=== PATIENT | male | born 2000 | race African-American/Black ===

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

== ENCOUNTER 2018-08-31 06:24 | Emergency (ER) | payer SELFPAY | END 2018-08-31 06:50 | disposition left against medical advice (07) | LOC: COL.ER 06:24 | DX: Z72.9 Problem related to lifestyle, unspecified (principal) ==

== ENCOUNTER → 2018-08-31 | Emergency (ER) | payer SELFPAY | LOC: COL.ER 04:50 | DX: Z72.9 Problem related to lifestyle, unspecified (principal) ==

== ENCOUNTER 2018-11-09 17:55 | Inpatient (IN) | payer SELFPAY ==
[2018-11-09] VITALS (83 sets, daily range): BP systolic 156; BP diastolic 93; PULSE 68; TEMP 98.1; O2SAT 97–100
[~2018-11-09] VITALS: Ht 167.6 cm; Wt 70.0 kg
[2018-11-09 18:21] LABS: COLLECTION METHOD CATHETER
[2018-11-09 18:25] LABS: BASO % 0.2 % (0.0-2.0); EOS # 0.1 (0.0-0.7); EOS % 1.9 % (0-4.0); GRAN # 3.3 (1.4-6.5); GRAN % 51.2 % (42.2-75.2); HEMATOCRIT 42.2 % (36.0-47.0); HEMOGLOBIN 14.2 g/dl (12.5-16.1); LYMPH # 2.4 (1.2-3.4); LYMPH % 37.3 % (20.0-51.0); MEAN CELL VOLUME 98 fl (80.0-95.0); MEAN CORPUSCULAR HEMOGLOBIN 33 pg (26.0-32.0); MEAN CORPUSCULAR HGB CONC 34 g/dl (33.0-37.0); MEAN PLATELET VOLUME 8.8 fl (7.4-10.4); MONO # 0.6 (0.1-0.6); MONO % 9.1 % (1.7-9.3); PLATELET COUNT 232 K/mm3 (130-400); RED BLOOD COUNT 4.33 M/mm3 (4.20-5.60); REDCELL DISTRIBUTION WIDTH-CV 12.7 % (11.5-14.5)
[2018-11-09 18:33] LABS: MUCOUS Present /lpf; PH 6 (5-8); SQUAMOUS EPITHELIAL 0-2 /hpf; URINE APPEARANCE Hazy; URINE BACTERIA None Seen /hpf; URINE BILIRUBIN Negative (NEGATIVE); URINE BLOOD 1+ (NEGATIVE); URINE COLOR Amber; URINE GLUCOSE Negative (NEGATIVE); URINE KETONE Negative (NEGATIVE); URINE LEUKOCYTE ESTERASE 1+ (NEGATIVE); URINE NITRATE Negative (NEGATIVE); URINE PROTEIN(semi-quant) 1+ (NEGATIVE); URINE UROBILINOGEN >=4.0 mg/dL (NEGATIVE)
[2018-11-09 18:36] LABS: ALANINE AMINOTRANSFERASE 24 U/L (21-72); ALKALINE PHOSPHATASE 74 U/L (50-136); ANION GAP 6 mmol/L (7-16); AST,SGOT 72 U/L (15-37); BILIRUBIN,TOTAL 1.1 mg/dL (0.0-1.0); BLOOD UREA NITROGEN 5 mg/dL (9-20); CALCIUM 9.1 mg/dL (8.4-10.2); CARBON DIOXIDE 24 mmol/L (22-30); CHLORIDE 108 mmol/L (98-107); CREATININE, serum 0.98 (0.66-1.25); GLUCOSE 101 mg/dL (74-106); POTASSIUM 3.9 mmol/L (3.4-5.0); SODIUM 138 mmol/L (137-145); TOTAL PROTEIN 6.9 gm/dL (6.4-8.2)
[2018-11-09 18:41] LABS: ACETAMINOPHEN < 10 ug/mL (10-30); ALCOHOL(ethanol),MEDICAL < 10 mg/dL; SALICYLATE < 1.0 mg/dL
[2018-11-09 18:42] LABS: TRICYCLIC ANTIDEPRESS URINE NEGATIVE
--- NOTE | 2018-11-09 23:54 | NUR ---
ADMISSION DONE WITH VERY LIMITED DATA PT IS UNRESPONSIVE TO QUESTIONS AND ONLY RESPONDS TO PAINFUL STIMULUS. PT'S EYES NOTED TO BE TWITCHING WITH TEARS COMING OUT BUT COULD NOT GET TO OPEN. EYES COMPLETELY SHUT PT IS REFUSING TO OPEN IT UP. LUNGS SOUNDS CLEAR UPON ASSEESSMENT AND SKIN IS INTACT WITH NO ISSUES NOTED. V/S STABLE UPON ARRIVAL TO UNIT. SEIZURE PRECAUTION INITIATED ORDERED. THIS RN TRIED CALLING PT'S MOM ROMELIA LISTED IN PT'S EMERGENCY CONTACT, UNFORTUNATELY UNABLE TO REACH THE NUMBER LISTED WAS NOT WORKING. MEDICATION REC NOT DONE WELL PT DOESN'T HAVE MEDS WITH HIM AND NO FAMILY MEMBER AROUND AT TIME OF ADMISSION.
[2018-11-10] VITALS (825 sets, daily range): BP systolic 118–161; BP diastolic 72–111; PULSE 52–107; TEMP 97.8–99.3; O2SAT 30–100
--- NOTE | 2018-11-10 00:17 | NUR ---
ASSESSMENT IS VERY LIMITED PT DOES NOT ANSWER TO QUESTIONS AND ONLY RESPONDS TO PAINFUL STIMULI. PT WAS AWAKE AT ONE POINT WITH HIS LEFT EYE OPEN AND RIGHT EYES COMPLETELY SHUT. PT RESPONDING TO QUESTIONS WITH ONLY "UHUH." WILL CONTINUE TO MONITOR.
--- NOTE | 2018-11-10 01:18 | NUR ---
2221 - RECEIVED REPORT FROM SHANTEL MAXWELL. 2232 - PT ARRIVED IN UNIT, ONLY RESPONDS TO PAINFUL STIMULI. 2245 - THIS RN TRIED CALLING PT'S EMERGENCY CONTACT WHICH IS [facility] AND LISTED HIS MOM, UNABLE TO REACH NUMBER ON FILE. 2340 - TRIED CALLING ROMELIA AGAIN, UNABLE TO REACH.
--- NOTE | 2018-11-10 04:31 | NUR ---
0400 - PT WAS AWAKE WITH EYES WIDE OPEN THIS NURSE ENTER THE ROOM. THIS RN ASKED PT IF HE'S OKAY AND PT SUDDENLY SCREAMED. PT NOT RESPONDING TO QUESTIONS, AND JUST STARING BLANKLY WITH NO REACTIONS.
--- NOTE | 2018-11-10 05:42 | NUR ---
0524 - PT HAD A SEIZURE LIKE ACTIVITY WITNESSED BY THIS RN AND CHARGE NURSE SHARA LASTING ABOUT A MINUTE. PT DOES NOT RESPOND TO OUR VERBAL COMMANDS AND HAS HIS EYES WIDE OPEN WHILE HAVING THIS SEIZURE-LIKE ACTIVITY. OFFICE SERVICES SPECIALIST TRIED REPOSITIOINING HIS ARMS BUT PT FIGHTING REAL HARD AND SEEMS TO BE DRAWING CIRCLES ON HIS CHEST USING HIS HANDS. LAQUITA FROST NOTIFIED BY SHANTEL OLMEDO. NOW NEW ORDERS GIVEN AT THIS TIME. WILL CONTINUE TO MONITOR.
[2018-11-10 06:39] LABS: BASO % 0.4 % (0.0-2.0); EOS # 0.1 (0.0-0.7); GRAN # 3.3 (1.4-6.5); GRAN % 60.1 % (42.2-75.2); HEMATOCRIT 45.6 % (36.0-47.0); HEMOGLOBIN 15.3 g/dl (12.5-16.1); LYMPH # 1.5 (1.2-3.4); LYMPH % 27.7 % (20.0-51.0); MEAN CELL VOLUME 99 fl (80.0-95.0); MEAN CORPUSCULAR HEMOGLOBIN 33 pg (26.0-32.0); MEAN CORPUSCULAR HGB CONC 34 g/dl (33.0-37.0); MEAN PLATELET VOLUME 8.5 fl (7.4-10.4); MONO # 0.5 (0.1-0.6); MONO % 9.6 % (1.7-9.3); PLATELET COUNT 231 K/mm3 (130-400); RED BLOOD COUNT 4.59 M/mm3 (4.20-5.60)
[2018-11-10 06:46] LABS: CALCIUM 9.1 mg/dL (8.4-10.2); CREATININE, serum 0.95 (0.66-1.25); POTASSIUM 4.3 mmol/L (3.4-5.0)
--- NOTE | 2018-11-10 07:00 | NUR ---
ATTEMPTED TO PERFORM EEG AT THIS TIME PATIENT WOULD NOT ALLOW ME TO MOVE HIS HEAD TO BE ABLE TO APPLY WIRES. NO ABLE TO PERFORM EEG DUE TO PATIENT NOT COOPERATING. NURSE NOTIFIED.
--- NOTE | 2018-11-10 07:30 | NUR ---
Report received from SHANTEL Rocha. Assessment completed. Orders for straight cath since pt unable to void for 8 hours. 14 fr catheter inserted with sterile technique, 500 cc clear, tea colored urine out. Catheter out, pt tolerated well. Pt laying in bed, eyes open. Only responds to painful stimuli. Moves legs around in bed. See neuro check assessment. Seizure precautions continued. Well monitor.
--- NOTE | 2018-11-10 09:00 | NUR ---
Pt left room for MRI on stretcher with medtronics technician.
--- NOTE | 2018-11-10 09:45 | NUR ---
PATIENT RETURNS FROM MRI AT THIS TIME. HE IS AWAKE, MAKING OBSCENE FACIAL EXPRESSIONS, CLICKING HIS TONGUE, FLUTTERING HIS EYES IN VARIOUS WAYS, MOVING HIS SHOULDERS AROUND IN THE BED, GYRATING HIS PELVIS WHILE LYING DOWN. PATIENT PLACED BACK ON MONITORS, BED ALARM IN PLACE. WILL CONTINUE TO MONITOR.
--- NOTE | 2018-11-10 10:00 | NUR ---
PATIENT SETS OFF BED ALARM. HE IS WIGGLING HIS BODY ALL OVER THE BED, CONTINUES TO MAKE VERY OFF FACIAL EXPRESSIONS AND MAKING POPPING AND CLICKING NOISES WITH HIS TONGUE.
--- NOTE | 2018-11-10 10:02 | NUR ---
Entered pt's room at bed alarm was going off. Pt moving around in bed. Called name and asked his to lay back. Pt did. Upon approaching bed to silence bed alarm, pt reached over side rail and grabbed at my pants while yelling "booty crotch." I immediately stepped back out of pt reach and sternly voiced for pt not to touch me again and that his behavior was not appropriate. Pt laid back in bed and was also touching himself under the covers. Pt's primary nurse Waleska, as well as comsec manager Earlene notified of situation and advised not to enter room alone.
--- NOTE | 2018-11-10 10:15 | NUR ---
PATIENT SETS OFF BED ALARM. HE IS FLIPPING HIS WHOLE BODY AROUND IN THE BED AND HIS MONITOR CORDS ARE WRAPPED 3 TIMES AROUND HIS NECK. HE IS NOT STRUGGLING FOR BREATH AT THIS TIME. MONITOR CORDS ARE REMOVED FROM AROUND HIS NECK. HE IS TAKEN OFF ALL MONITORS EXCEPT FOR HIS TELE MONITOR. PATIENT IS REMINDED TO LIE DOWN AND REST. SEIZURE PADS IN PLACE. BED ALARM TURNED BACK ON. WILL CONTINUE TO MONITOR.
--- NOTE | 2018-11-10 10:45 | NUR ---
PATIENT PLACED IN 4 POINT RESTRAINTS. HE WAS FLIPPING HIMSELF AROUND IN THE BED, NOT FOLLOWING DIRECTION, GRABBING AT THE NURSES, HE STANDS UP NAKED ON THE BED AND GYRATES HIS PELVIS AT ME, HE ACTS IF HE IS GOING TO JUMP OUT OF THE BED ON TOP OF ME AND THEN STARTS SWINGING HIS MITTED HANDS AT ME. THE PATIENT IS TOLD TO LIE DOWN, SECURITY IS CALLED. PATIENT JUMPS DOWN INTO A LYING POSITION ON THE BED. SECURITY ARRIVES AND HELPS US PLACE 4 POINT LEATHER RESTRAINTS ON THIS PATIENT. WHILE WE ARE PLACING RESTRAINTS, DR FUENTES IS CALLED WITH UPDATE. SHE ARRIVES SHORTLY AFTER RESTRAINTS ARE PLACED.
--- NOTE | 2018-11-10 12:05 | NUR ---
Report received from SHANTEL Henao. Pt in bed resting with [address], pulses palpated distal to restraints in all 4 extremeties, CMS intact. Pt is resting quietly, snoring intermittently, awakens when placing blood pressure cuff, incomprehensible murmuring and then falls back asleep. Denies needs, appears comfortable, will continue to monitor.
--- NOTE | 2018-11-10 12:14 | NUR ---
REPORT GIVEN TO SHANTEL MCHUGH. CARE HANDED OVER AT THIS TIME.
--- NOTE | 2018-11-10 12:56 | NUR ---
Called Dr. Parker, Updated him with pt status, order received to d/c EEG, updated RT with this information. Pt continues to rest quietly in bed.
--- NOTE | 2018-11-10 14:38 | NUR ---
Pt awakens when in the room giving lower extremities a break from the restraints, states he does have to go to the bathroom but then will not discuss wanting to get up or answering questions regarding using urinal or bedpan, falls back asleep, will continue to monitor. RLE off of restraint for exercising, ROM, CMS intact. Will continue to monitor.
--- NOTE | 2018-11-10 15:27 | NUR ---
SW attended clinical rounds. The patient was trying to head butt staff and grabbed the nurse. A psych consult has been ordered. SW attempted to contact the patient's mother, Leonie. SW to continue to follow.
--- NOTE | 2018-11-10 16:26 | NUR ---
Dr. Yung here to see pt at this time. Pt is more awake, extrapyramidal movements noted by Aga, recommending psych screening for involuntary inpatient stay, called [facility] and they say [facility] will be doing the screening. Jayla, ICU staff calling to get this process started. Pt has not voided, bed bath provided and bladder scan completed, greater than 568 mls found. Will straight cath per orders from Dr. Bruner
--- NOTE | 2018-11-10 16:45 | NUR ---
[facility] video screening completed at this time via teleconference with psych screener. Held tablet for pt, he did not respond to any qeustions. She recommended inpatient psychiatric care. At this time OSH has no wait list. Will await call back and continue to monitor.
--- NOTE | 2018-11-10 17:37 | NUR ---
Straight catheterization completed at this time with student nurse. Pericare provided pre and post, pt tolerated well. 400 mls of hazy, malodorous urine removed. Sterile technique utilized by student nurse. Pt continues to have fixed gaze, facial movements, not responding to verbal stimuli. Will give bedside shift report to nightshift nurse who will resume care.
--- NOTE | 2018-11-10 19:50 | NUR ---
Patient assessment completed and charted at this time, please see documentation for details. Patient in 4 point restraints, not able to communicate effectively at this time. Patient continues to make non purposeful facial expressions. Patient within eye sight of nurse at all times, will continue to monitor and assess.
[2018-11-11] VITALS (23 sets, daily range): BP systolic 129–153; BP diastolic 69–111; PULSE 57–124; TEMP 97.5–99.6; O2SAT 99–100
--- NOTE | 2018-11-11 | NUR ---
Patient condition unchanged at this time, remains in 4 point restraints with periods of removal of one limb for exercise. Patient not fighting restraints at this time.
--- NOTE | 2018-11-11 01:30 | NUR ---
Received call from Marisabel stating that patients pending transfer to OSH will not be evaluated until the morning.
--- NOTE | 2018-11-11 07:19 | NUR ---
Report received from Bandar FUNES and care resumed.
--- NOTE | 2018-11-11 09:06 | NUR ---
Dr Gibson here rounding on pt at this time.
--- NOTE | 2018-11-11 09:19 | NUR ---
Pt stated to pharmacist "Hey can I go to the bathroom." Entered room and offered pt urinal. Tried placing urinal in place and pt starts thrashing about saying "oh hell no, you aint doin that". Explained to pt I was just placing a urinal between his legs so he could urinate and showed urinal to pt. He stated clearly "I don't need to go that bad." Pt then looked at hands and states "you trying to box , you wanna throw down bitches, I know how to get out of these too". Pt looking at restraints and I assume refering to getting out of them. Dr Gibson was present and updated that pt is now speaking verses random mumlenard.
--- NOTE | 2018-11-11 10:03 | NUR ---
Pt given IM Geodon as ordered. Is resting quietly at this time.
--- NOTE | 2018-11-11 10:12 | NUR ---
TAMARA and dispatcher relay met with the patient to inquire if he has any family that he would like contacted. The patient informed TAMARA that he lives in an apartment around [facility]. He states that he does have family. TAMARA asked the patient if he would like for us to contact his mother and asked about the events that led him to being hospitalized. The patient then started talking about having something in his eye and did not answer TAMARA. The patient is awaiting acceptance as [facility]. TAMARA to continue to follow.
--- NOTE | 2018-11-11 11:20 | NUR ---
Pt stating he needs to pee. Urinal placed. Pt able to void 825 ml of caroline colored urine. Linens changed while pt awake. Will continue to follow.
--- NOTE | 2018-11-11 19:15 | NUR ---
Bedside report received from Jaja FUNES. Pt resting in bed with 2 wrist locked restraints. Pt is constantly moving eyes in all directions. Will not make eye contact or answer orientation questions. Mumbling, moaning and making sounds as if singing. Mouth is also constantly moving with opening and closing with various head movements. Lower extremities are in intermittent movement although movements do not seem to have any purpose. Scleras are red in color, crusting on lips are noted. Hospital gown is on with a sheet and blanket at this time. Mits are in place to bilateral hands.
--- NOTE | 2018-11-11 19:17 | NUR ---
Report given to Shruthi FUNES and care transfered.
--- NOTE | 2018-11-11 22:30 | NUR ---
Pt was noted to be awake with increased restlessness at this time. This nurse entered room to see if pt needed to use the urinal or wanted a drink of water. Water was refused and with CMS checks the pts right leonard was noted to be wet. Upon further examination pt was noted to have an incontinent episode of urine. Bed bath was completed with linen change, following call to security personel for extra stand by assistance. Pt demonstrated increased coherance noted with speech. Pt was still unable to answer any orientation questions at this time although replied with the verbal answer with "I dont know" to a couple questions asked. Pt kept pointing to the bed with right leonard, out of locked restraint with the left wrist remaining in the restraint, "Niger, look at this right here." Then kept stating things along the lines of "getting baked" and it was stuff that was "cooked up". Pt was restless and resistent to staff cues to turn and reposition extremities. Did not respond to painful stimuli at this time when attempting to get pts right foot out of the foot board in order to turn pt. X3 staff assist was required to get pt situated following bed bath and during linen change. Pt sat up into sitting position and moved upwards into the bed. Security was able to get pt to lay down by holding onto legs while nurses were able to get sheets underneath pt and place right wrist back into restraints. Bed was placed at a 20 degree angle. Mits and restraints checked for appropriate placement and gap for adequate circulation.
--- NOTE | 2018-11-11 23:27 | NUR ---
Pt is currently making what is consistent with dancing movements in bed. Eyes are open with no non purposeful movements of the eyes or mouth noted. Head is swaying from side to side with a bouncing motion noted to upper and lower extremities.
[2018-11-12] VITALS (21 sets, daily range): BP systolic 104–173; BP diastolic 57–99; PULSE 47–95; TEMP 96.8–98.7; O2SAT 47–100
--- NOTE | 2018-11-12 02:00 | NUR ---
With security at bedside each wrist was removed from locked restraint, one at a time, in order to give pt ability for ROM. The first restraint unlocked was the right wrist. Pt did not move the arm when verbally cued. As nurse reached down to touch pts arm pt tensed up arm and kept firmly on the bed. Pt was then asked if urinal was needed or if pt wanted some water at this time. Pt shook head in a slight side to side motion following each question. Following 1-2 minutes when pt did not move right arm, the arm was placed back into restraints and assessed for the 1-2 finger gap inbetween the restraint and the pts wrist. Next the left arm was released with the same results, where pt refused to move once cued and tensed with firm pressure onto the bed when nurse touched pts arm to assist in ROM. Following 1-2 minutes pts arm was placed back in to the locked restraint with a 1-2 finger gap in between the restraint and the pts wrist. Pt remains dry with no noted incontinence at this time.
--- NOTE | 2018-11-12 03:30 | NUR ---
Pt is laying on left side with hips making a humping motion. Pt was asked if a urinal was needed at this time, no response received. When attempts to place urinal up to pt pt make hand motions to gown to keep it down.
--- NOTE | 2018-11-12 05:30 | NUR ---
Lab at bedside to draw at this time with nurse assistance. Pt remains in 2 wrist locked restraints. Pt alert the multiple eye and mouth movements. Oral care was attempted in between attempts from lab although pt closed mouth and turned head with attempts. Pt would intermittently verbalize "shit" and "fuck" during attempts for lab draw with increased movement of upper extremities. Lab draw was a failed attempt. Following first attempt urinal was attempted for pt to urinate although there was no results. Second laborer cement gun placing was able to draw labs shortly after first attempt.
[2018-11-12 06:10] LABS: CALCIUM 9.1 mg/dL (8.4-10.2); CREATININE, serum 0.85 (0.66-1.25); POTASSIUM 3.9 mmol/L (3.4-5.0)
--- NOTE | 2018-11-12 06:30 | NUR ---
Due to no urine output for approx 7 hours noted pt was bladder scanned with a result of >999. Second staff member obtained to straight cath pt. Pt tolerated beginning of straight cath until awaiting bladder to drain when pt tightened legs together and would not release. Security was called although by the time security arrived pt was beginning to become a little more cooperative for staff. Straight cath was removed with needed partial bed change due to urinary spill during uncooperative moment.
--- NOTE | 2018-11-12 07:00 | NUR ---
[facility] contacted this nurse stating need for MRI report, asked for recent VS and update provided on recent CK lab from this morning. Requested forms faxed with fax sheet returned that requested information had gone through.
--- NOTE | 2018-11-12 07:10 | NUR ---
Pt report provided to Chen FUNES. Pt resting in bed at this time quietly with mininal movements to face although eyes are moving in multiple directions.
--- NOTE | 2018-11-12 07:10 | NUR ---
Report received from SHANTEL Hawkins.
--- NOTE | 2018-11-12 07:25 | NUR ---
Assessment complete, patient does not speak or follow commands at this time, eyes are moving in multiple directions and upper body moving in bed. Bilateral leather wrist restraints in place. Patient closed lips tightly when offered something to drink. Bilateral mitts in place.
--- NOTE | 2018-11-12 09:00 | NUR ---
Brushed patient teeth, initially patient had mouth open, teeth clenched, this RN brushed his teeth, then when went to swish with water, patient tightened lips closed.
--- NOTE | 2018-11-12 09:33 | NUR ---
Binh from [facility] triage desk called for update.
--- NOTE | 2018-11-12 10:51 | NUR ---
Patient continues making clicking noises with his mouth, with some verbal outbursts.
--- NOTE | 2018-11-12 11:46 | NUR ---
Bladder scanned patient >767 at this time, asked patient if he needs to void, patient started clicking and turns head away. Diaper in place.
--- NOTE | 2018-11-12 12:10 | NUR ---
from [facility] called for update, given, then transferred to 's phone.
--- NOTE | 2018-11-12 12:40 | NUR ---
Patient "rapping" in bed, continues to clench teeth together when giving him pudding.
--- NOTE | 2018-11-12 12:56 | NUR ---
Patient sitting up in bed, verbal outburst, "shazam, that bitch." Now singing very loud.
--- NOTE | 2018-11-12 13:05 | NUR ---
Tray with scrambled eggs, tater tots and chocolate pudding placed in front of patient, he refused to eat, just keeps singing/rapping out loud. Bed alarm on for patient safety.
--- NOTE | 2018-11-12 13:21 | NUR ---
Patient sitting up in bed with eyes closed, panting.
--- NOTE | 2018-11-12 15:15 | NUR ---
Jailers here to take patient to court. Dr. Gibson here and states patient is not safe to go to court at this time, he is not in control of his own actions, catatonic and flayling around in bed. Patient incontinent of urine, security here to help SHANTEL Bates and this RN change patient and linens.
--- NOTE | 2018-11-12 15:30 | NUR ---
[facility] patient was not safe to go to court.
--- NOTE | 2018-11-12 17:04 | NUR ---
Patient resting quietly with eyes closed, respirations even and non-labored, bed alarm on and call light within reach.
--- NOTE | 2018-11-12 19:11 | NUR ---
Bedside report given to SHANTEL Hawkins.
--- NOTE | 2018-11-12 19:15 | NUR ---
Bedside report received from Chen FUNES. Pt resting on his right side with 1 wrist and [address]. Pt is able to answer questions although verbal rambling is at times not easily understandable. Was able to state location was [place], month was spring and unable to state who the president was. Brief with yellow gown is currently in place. Cookies and juice with in reach at bedside.
--- NOTE | 2018-11-12 20:30 | NUR ---
Pt started displaying increased restlessness with sitting on the edge of the bed on the right side where restraints were applied. Pt would not follow commands of staff members to lie back into bed. Security was called at this time with executive community planning at bedside. Pt was wrestled into 4 point restraint X3 staff members with pt continue to fight staff members and cares. Pt bed was full of incontinent urine so bedchange was completed with bed bath attempted.
[2018-11-13] VITALS (12 sets, daily range): BP systolic 116–130; BP diastolic 48–84; PULSE 46–81; TEMP 97.3–98.2; O2SAT 91–96
--- NOTE | 2018-11-13 00:30 | NUR ---
Pt has been intermittently sitting up with eyes open, looking around and then laying back down. Restlessness has been intermittent and mild during these times. Urinal was attempted with prior assessment although pt declined use multiple times by saying "in just a minute". After a couple moments passed the urinal was placed in a position where pt would be able to utilize it although there were no results. No incontinence noted at this time.
--- NOTE | 2018-11-13 01:45 | NUR ---
Pt had eyes open and was moving around in bed approximately 0125 when nurse entered the room. Pt then asked to get fresh sheets. Sheets were noted to be wet under pt. Breakfast was asked for by pt although once pt looked at the clock the next response was "oh its to early". Pt denies any pain or further needs besides letting wrist out of restraints. Explination was provided to the pt as to why the restraints were being utilized. Pt was calm and cooperative during bed change, ROM exercises to bilateral lower legs and right arm including placement of limb back into the extremity. Pt asked nurse "what all happened yesterday." Nurse explained how pt came to be in the hospital and moments of aggression and combativeness towards staff. Pt responded "wow" and "how could I have been walking on the streets if I was tied to this bed all day." Clarification was provided at this time. Once bed change was made and restraints applied pt laid back in bed and closed eyes. Lights were turned off in the room at this time for further decrease in stimulation.
--- NOTE | 2018-11-13 04:15 | NUR ---
Pt slipped out of right hand out of restriant. At this time pt is not showing any signs of agitation although nurse watched pt slide hand out and was present at bedside immediately. Pt was pleasant with conversation and stated "Im more comfortable this way." Pt refused to place hand back in to the restraint. Would move the wrist towards the restraint although would not lay on back for correct positioning. Pt repeated to "stop bugging" to this nurse. Odin from security was called for extra assistance. Pt would continue to not move for laying on the left side with right lower extremity restraint removed at this time. Right wrist restraint secured.
--- NOTE | 2018-11-13 07:05 | NUR ---
Report recieved from SHANTEL Hawkins.
--- NOTE | 2018-11-13 07:05 | NUR ---
Report provided to Chen FUNES.
--- NOTE | 2018-11-13 07:25 | NUR ---
Assessment complete, patient awake and alert, no EPS symptoms noted, patient speaking not clicking at this time.
--- NOTE | 2018-11-13 10:15 | NUR ---
SW made an APS report on the patient. Intake ID#[id number].
--- NOTE | 2018-11-13 11:03 | NUR ---
Binh from [facility] called for update.
--- NOTE | 2018-11-13 11:17 | NUR ---
Patient voids per urinal.
--- NOTE | 2018-11-13 12:45 | NUR ---
Patient in 2 pt locked restraints, right arm and left leg restrainted.
--- NOTE | 2018-11-13 14:07 | NUR ---
Latanya from [facility] called for doc to doc.
--- NOTE | 2018-11-13 14:23 | NUR ---
Dr. Yung called states patient "has been accepted at [facility], needs to go [facility] with shackles for patient safety."
--- NOTE | 2018-11-13 16:10 | NUR ---
Spoke with Umm, Bed Coordinator regarding transportation. Made her aware that our transport stated they would be there as close to 2100 as possible but unsure if they could make it on time. Per Umm, she stated they would make it all work out and not to worry about it. [facility] made aware the importance of needing to be there by 2100 if at all possible.
--- NOTE | 2018-11-13 16:44 | NUR ---
Will call Umm at [facility] with ETA once patient discharges.
--- NOTE | 2018-11-13 17:32 | NUR ---
Patient requests "another sample, I loved what I had." Another dinner ordered for patient.
--- NOTE | 2018-11-13 18:59 | NUR ---
Bladimir, [facility] admissions updated on ETA.
--- NOTE | 2018-11-13 19:00 | NUR ---
Patient transported via [facility] to [facility].
--- NOTE | 2018-11-13 20:38 | NUR ---
Dorcas from [facility] called for report on pt. Staff was nptified that this pt left the facility via [facility] at 1900, report was not received due to that being shift change. Recent VS provided and update on prior medications based strictly on care provided by this nurse the last 2 nights.
== END 2018-11-13 19:02 | DRG 885 ==
LOC: COL.ER 17:55 → ICU 20:47
PROVIDERS: Emergency Medicine; Nurse Practitioner Family; Physician Assistant; ADMIT Internal Medicine
DX: F20.0 Paranoid schizophrenia (principal); M62.82 Rhabdomyolysis; E46 Unspecified protein-calorie malnutrition; Z91.14 Patient's other noncompliance with medication regimen; F12.10 Cannabis abuse, uncomplicated; Z68.27 Body mass index [BMI] 27.0-27.9, adult; R33.9 Retention of urine, unspecified; F20.2 Catatonic schizophrenia
CPT/HCPCS: 99223-AI; 99233-AI; 99239; A4216; A9585; G0378; G0463; J0696; J1120; J1200; J1650; J2060; J2310; J3480; J3486; J7030

== ENCOUNTER 2019-05-23 08:41 | Emergency (ER) | payer SELFPAY ==
[~2019-05-23] VITALS: Ht 175.3 cm; Wt 81.4 kg
[2019-05-23 08:45] VITALS: TEMP 98.8
[2019-05-23 09:22] LABS: BASO % 0.3 % (0.0-2.0); EOS # 0.2 (0.0-0.7); EOS % 2.4 % (0-4.0); GRAN # 3.5 (1.4-6.5); GRAN % 56.5 % (42.2-75.2); HEMATOCRIT 48.6 % (36.0-47.0); LYMPH # 1.9 (1.2-3.4); LYMPH % 30.2 % (20.0-51.0); MEAN CELL VOLUME 95 fl (80.0-95.0); MEAN CORPUSCULAR HEMOGLOBIN 33 pg (26.0-32.0); MEAN CORPUSCULAR HGB CONC 35 g/dl (33.0-37.0); MEAN PLATELET VOLUME 8.8 fl (7.4-10.4); MONO # 0.6 (0.1-0.6); MONO % 10.3 % (1.7-9.3); PLATELET COUNT 261 K/mm3 (130-400); RED BLOOD COUNT 5.11 M/mm3 (4.20-5.60); REDCELL DISTRIBUTION WIDTH-CV 12.4 % (11.5-14.5)
[2019-05-23 09:27] LABS: ALANINE AMINOTRANSFERASE 22 U/L (21-72); ALBUMIN 4.5 gm/dL (3.5-5.0); ALKALINE PHOSPHATASE 99 U/L (50-136); ANION GAP 9 mmol/L (7-16); AST,SGOT 32 U/L (15-37); BLOOD UREA NITROGEN 11 mg/dL (9-20); CALCIUM 9.4 mg/dL (8.4-10.2); CARBON DIOXIDE 25 mmol/L (22-30); CHLORIDE 105 mmol/L (98-107); CREATININE, serum 0.86 (0.66-1.25); GLUCOSE 86 mg/dL (74-106); POTASSIUM 4.2 mmol/L (3.4-5.0); SODIUM 139 mmol/L (137-145); TOTAL PROTEIN 7.7 gm/dL (6.4-8.2)
[2019-05-23 09:48] LABS: TROPONIN-I < 0.012 ng/mL (0.000-0.035)
[2019-05-23] MEDS ORDERED: AMBIEN 5MG TABLE5 MG PO (11:07)
[2019-05-23 11:15] VITALS: BP 110/91; PULSE 72
== END 2019-05-23 11:18 | disposition home or self-care (01) ==
LOC: COL.ER 08:41
PROVIDERS: Nurse Practitioner
DX: K21.9 Gastro-esophageal reflux disease without esophagitis (principal); F20.9 Schizophrenia, unspecified; J45.909 Unspecified asthma, uncomplicated; F17.210 Nicotine dependence, cigarettes, uncomplicated

== ENCOUNTER 2019-08-19 10:11 | Emergency (ER) | payer SELFPAY ==
[~2019-08-19] VITALS: Ht 175.3 cm; Wt 81.8 kg
[~2019-08-19 10:11] MED LIST changes: +AMBIEN 5MG TABLE5 MG PO
[2019-08-19 10:15] VITALS: TEMP 97.6
[2019-08-19 11:20] LABS: BASO % 0.1 % (0.0-2.0); EOS # 0.1 (0.0-0.7); EOS % 1.5 % (0-4.0); GRAN # 4.7 (1.4-6.5); GRAN % 69.3 % (42.2-75.2); HEMOGLOBIN 15.7 g/dl (13.5-18.0); LYMPH # 1.5 (1.2-3.4); LYMPH % 21.7 % (20.0-51.0); MEAN CELL VOLUME 98 fl (80.0-100.0); MEAN CORPUSCULAR HEMOGLOBIN 33 pg (27.0-31.0); MEAN CORPUSCULAR HGB CONC 34 g/dl (33.0-37.0); MONO # 0.5 (0.1-0.6); MONO % 7.1 % (1.7-9.3); PLATELET COUNT 227 K/mm3 (130-400); RED BLOOD COUNT 4.71 M/mm3 (4.20-5.60); REDCELL DISTRIBUTION WIDTH-CV 12.8 % (11.5-14.5)
[2019-08-19 11:52] LABS: ALANINE AMINOTRANSFERASE 21 U/L (21-72); ALKALINE PHOSPHATASE 79 U/L (50-136); ANION GAP 7 mmol/L (7-16); AST,SGOT 40 U/L (15-37); BILIRUBIN,TOTAL 0.5 mg/dL (0.0-1.0); BLOOD UREA NITROGEN 13 mg/dL (9-20); CARBON DIOXIDE 21 mmol/L (22-30); CHLORIDE 112 mmol/L (98-107); CREATININE, serum 0.87 (0.66-1.25); GLUCOSE 99 mg/dL (74-106); POTASSIUM 3.9 mmol/L (3.4-5.0); SODIUM 140 mmol/L (137-145); TOTAL PROTEIN 7.1 gm/dL (6.4-8.2)
[2019-08-19 12:09] LABS: COLLECTION METHOD CLEAN CATCH
[2019-08-19 12:13] LABS: ACETAMINOPHEN < 10 ug/mL (10-30); ALCOHOL(ethanol),MEDICAL < 10 mg/dL; SALICYLATE < 1.0 mg/dL
[2019-08-19 12:16] LABS: MUCOUS Present /lpf; PH 5 (5-8); SQUAMOUS EPITHELIAL 0-2 /hpf; URINE APPEARANCE Clear; URINE BACTERIA None Seen /hpf; URINE BILIRUBIN Negative (NEGATIVE); URINE BLOOD Negative (NEGATIVE); URINE COLOR Yellow; URINE GLUCOSE Negative (NEGATIVE); URINE KETONE 1+ (NEGATIVE); URINE LEUKOCYTE ESTERASE Negative (NEGATIVE); URINE NITRATE Negative (NEGATIVE); URINE PROTEIN(semi-quant) 1+ (NEGATIVE); URINE RBC 0-2 /hpf
[2019-08-19 12:59] LABS: TRICYCLIC ANTIDEPRESS URINE NEGATIVE
[2019-08-19 17:45] VITALS: BP 150/85; PULSE 89
== END 2019-08-19 17:45 | disposition home or self-care (01) ==
LOC: COL.ER 10:11
PROVIDERS: Nurse Practitioner
DX: F20.9 Schizophrenia, unspecified (principal); F29 Unspecified psychosis not due to a substance or known physiological condition

== ENCOUNTER 2019-12-01 12:48 | Emergency (ER) | payer MEDICAID ==
[~2019-12-01] VITALS: Ht 175.3 cm; Wt 80.5 kg
[2019-12-01 12:52] VITALS: BP 135/85; TEMP 98.4
[2019-12-01] MEDS ORDERED: NORCO 325 MG-51 TAB PO (15:15)
[2019-12-01] MEDS ORDERED: AMOXICILLIN 8751 TAB PO (15:15)
[2019-12-01 15:25] VITALS: PULSE 88
== END 2019-12-01 15:26 | disposition home or self-care (01) ==
LOC: COL.ER 12:48
DX: K61.0 Anal abscess (principal); F17.210 Nicotine dependence, cigarettes, uncomplicated
CPT/HCPCS: Q9967

== ENCOUNTER 2020-06-04 21:37 | Emergency (ER) | payer MEDICAID ==
[~2020-06-04] VITALS: Ht 177.8 cm; Wt 79.5 kg
[~2020-06-04 21:37] MED LIST changes: +AMOXICILLIN 8751 TAB PO; +NORCO 325 MG-51 TAB PO
[2020-06-04 21:48] VITALS: TEMP 97.9
[2020-06-04 22:15] LABS: BASO % 0.4 % (0.0-2.0); EOS # 0.2 (0.0-0.7); EOS % 3.4 % (0-4.0); GRAN # 2.7 (1.4-6.5); GRAN % 51.3 % (42.2-75.2); HEMATOCRIT 45.1 % (42.0-52.0); HEMOGLOBIN 15.2 g/dl (13.5-18.0); LYMPH # 1.6 (1.2-3.4); LYMPH % 29.2 % (20.0-51.0); MEAN CELL VOLUME 98 fl (80.0-100.0); MEAN CORPUSCULAR HEMOGLOBIN 33 pg (27.0-31.0); MEAN CORPUSCULAR HGB CONC 34 g/dl (33.0-37.0); MEAN PLATELET VOLUME 9.3 fl (7.4-10.4); MONO # 0.8 (0.1-0.6); MONO % 15.5 % (1.7-9.3); PLATELET COUNT 199 K/mm3 (130-400)
[2020-06-04 22:26] LABS: ALANINE AMINOTRANSFERASE 22 U/L (4-49); ALBUMIN 4.7 gm/dL (3.5-5.0); ALKALINE PHOSPHATASE 110 U/L (50-136); ANION GAP 8 mmol/L (7-16); AST,SGOT 34 U/L (15-37); BILIRUBIN,TOTAL 0.5 mg/dL (0.0-1.0); BLOOD UREA NITROGEN 22 mg/dL (9-20); CALCIUM 9.3 mg/dL (8.4-10.2); CARBON DIOXIDE 23 mmol/L (22-30); CHLORIDE 109 mmol/L (98-107); CREATININE, serum 1.09 (0.66-1.25); GLUCOSE 117 mg/dL (74-106); POTASSIUM 4.6 mmol/L (3.4-5.0); SODIUM 141 mmol/L (137-145); TOTAL PROTEIN 7.8 gm/dL (6.4-8.2)
[2020-06-04 23:00] LABS: ACETAMINOPHEN < 10 ug/mL (10-30); ALCOHOL(ethanol),MEDICAL < 10 mg/dL; SALICYLATE < 1.0 mg/dL
[2020-06-04] MEDS ORDERED: COGENTIN .0.5 MG/TAB PO (23:36)
[2020-06-04] MEDS ORDERED: HALDOL 5MG T5 MG/TAB PO (23:37)
[2020-06-04 23:40] LABS: COLLECTION METHOD CATHETER; MUCOUS Present /lpf; PH 5 (5-8); SQUAMOUS EPITHELIAL 0-2 /hpf; URINE APPEARANCE Clear; URINE BACTERIA None Seen /hpf; URINE BILIRUBIN Negative (NEGATIVE); URINE BLOOD 1+ (NEGATIVE); URINE COLOR Yellow; URINE GLUCOSE Negative (NEGATIVE); URINE KETONE 1+ (NEGATIVE); URINE LEUKOCYTE ESTERASE Trace (NEGATIVE); URINE NITRATE Negative (NEGATIVE); URINE PROTEIN(semi-quant) Negative (NEGATIVE); URINE UROBILINOGEN Negative (NEGATIVE)
[2020-06-04 23:45] LABS: TRICYCLIC ANTIDEPRESS URINE NEGATIVE
[2020-06-07 12:10] VITALS: BP 159/72; PULSE 52
== END 2020-06-08 11:46 ==
LOC: COL.ER 21:37
PROVIDERS: Nurse Practitioner Primary Care
DX: F20.9 Schizophrenia, unspecified (principal); F17.210 Nicotine dependence, cigarettes, uncomplicated; Z20.828 Contact with and (suspected) exposure to other viral communicable diseases
CPT/HCPCS: G0463; J1200; J1630; J2060

== ENCOUNTER 2021-02-06 02:23 | Emergency (ER) | payer MEDICAID ==
[~2021-02-06] VITALS: Ht 180.3 cm; Wt 81.8 kg
[~2021-02-06 02:23] MED LIST changes: +COGENTIN .0.5 MG/TAB PO
[2021-02-06 03:49] LABS: BASO % 0.3 % (0.0-2.0); EOS # 0.1 (0.0-0.7); EOS % 0.9 % (0-4.0); GRAN % 72.4 % (42.2-75.2); HEMATOCRIT 45.8 % (42.0-52.0); HEMOGLOBIN 15.8 g/dl (13.5-18.0); LYMPH # 1.1 (1.2-3.4); MEAN CELL VOLUME 95 fl (80.0-100.0); MEAN CORPUSCULAR HEMOGLOBIN 33 pg (27.0-31.0); MEAN CORPUSCULAR HGB CONC 35 g/dl (33.0-37.0); MEAN PLATELET VOLUME 8.8 fl (7.4-10.4); MONO # 0.7 (0.1-0.6); PLATELET COUNT 236 K/mm3 (130-400); RED BLOOD COUNT 4.81 M/mm3 (4.20-5.60); REDCELL DISTRIBUTION WIDTH-CV 13.2 % (11.5-14.5)
[2021-02-06 04:01] LABS: ALANINE AMINOTRANSFERASE 25 U/L (4-49); ALBUMIN 4.5 gm/dL (3.5-5.0); ALCOHOL(ethanol),MEDICAL < 10 mg/dL; ALKALINE PHOSPHATASE 92 U/L (50-136); ANION GAP 5 mmol/L (7-16); AST,SGOT 37 U/L (15-37); BILIRUBIN,TOTAL 1.2 mg/dL (0.0-1.0); BLOOD UREA NITROGEN 17 mg/dL (9-20); CALCIUM 9.8 mg/dL (8.4-10.2); CARBON DIOXIDE 22 mmol/L (22-30); CHLORIDE 109 mmol/L (98-107); GLUCOSE 93 mg/dL (74-106); POTASSIUM 3.8 mmol/L (3.4-5.0); SODIUM 136 mmol/L (137-145)
[2021-02-06 13:21] LABS: TRICYCLIC ANTIDEPRESS URINE NEGATIVE
[2021-02-07 11:11] VITALS: BP 145/88; PULSE 81; TEMP 97.2
== END 2021-02-07 12:36 ==
LOC: COL.ER 02:23
PROVIDERS: Emergency Medicine; Personal Emergency Response Attendant
DX: F20.9 Schizophrenia, unspecified (principal); Z79.899 Other long term (current) drug therapy
CPT/HCPCS: J2060

== ENCOUNTER 2021-03-10 22:56 | Emergency (ER) | payer MEDICAID ==
[~2021-03-10] VITALS: Ht 180.3 cm; Wt 97.7 kg
[2021-03-10 23:50] VITALS: BP 130/65
[2021-03-11 00:31] LABS: BASO # 0.1 (0.0-0.2); BASO % 0.9 % (0.0-2.0); EOS # 0.2 (0.0-0.7); EOS % 3.3 % (0-4.0); GRAN # 2.2 (1.4-6.5); GRAN % 38.5 % (42.2-75.2); HEMATOCRIT 44.3 % (42.0-52.0); HEMOGLOBIN 15.2 g/dl (13.5-18.0); LYMPH # 2.6 (1.2-3.4); LYMPH % 45.6 % (20.0-51.0); MEAN CELL VOLUME 95 fl (80.0-100.0); MEAN CORPUSCULAR HEMOGLOBIN 33 pg (27.0-31.0); MEAN CORPUSCULAR HGB CONC 34 g/dl (33.0-37.0); MEAN PLATELET VOLUME 8.5 fl (7.4-10.4); MONO # 0.6 (0.1-0.6); MONO % 11.3 % (1.7-9.3); PLATELET COUNT 253 K/mm3 (130-400); RED BLOOD COUNT 4.68 M/mm3 (4.20-5.60); REDCELL DISTRIBUTION WIDTH-CV 12.2 % (11.5-14.5)
[2021-03-11 00:39] LABS: ALANINE AMINOTRANSFERASE 20 U/L (4-49); ALBUMIN 4.3 gm/dL (3.5-5.0); ALKALINE PHOSPHATASE 62 U/L (50-136); ANION GAP 8 mmol/L (7-16); AST,SGOT 37 U/L (15-37); BILIRUBIN,TOTAL 0.6 mg/dL (0.0-1.0); BLOOD UREA NITROGEN 14 mg/dL (9-20); CALCIUM 9.3 mg/dL (8.4-10.2); CARBON DIOXIDE 26 mmol/L (22-30); CHLORIDE 103 mmol/L (98-107); CREATININE, serum 0.97 (0.66-1.25); GLUCOSE 88 mg/dL (74-106); POTASSIUM 3.5 mmol/L (3.4-5.0); SODIUM 137 mmol/L (137-145); TOTAL PROTEIN 7.5 gm/dL (6.4-8.2)
[2021-03-11 00:43] LABS: ACETAMINOPHEN < 10 ug/mL (10-30); ALCOHOL(ethanol),MEDICAL < 10 mg/dL; SALICYLATE < 1.0 mg/dL
[2021-03-11 05:18] LABS: COLLECTION METHOD CLEAN CATCH
[2021-03-11 05:33] LABS: PH 6 (5-8); SQUAMOUS EPITHELIAL None Seen /hpf; URINE APPEARANCE Clear; URINE BACTERIA None Seen /hpf; URINE BILIRUBIN Negative (NEGATIVE); URINE BLOOD Negative (NEGATIVE); URINE COLOR Straw; URINE GLUCOSE Negative (NEGATIVE); URINE KETONE Negative (NEGATIVE); URINE LEUKOCYTE ESTERASE Negative (NEGATIVE); URINE NITRATE Negative (NEGATIVE); URINE PROTEIN(semi-quant) Negative (NEGATIVE); URINE RBC 0-2 /hpf; URINE UROBILINOGEN Negative (NEGATIVE)
[2021-03-11 05:59] LABS: TRICYCLIC ANTIDEPRESS URINE NEGATIVE
[2021-03-11 10:55] VITALS: PULSE 87
== END 2021-03-11 10:55 | disposition home or self-care (01) ==
LOC: COL.ER 22:56
PROVIDERS: Emergency Medicine
DX: F20.9 Schizophrenia, unspecified (principal); Z20.822 Contact with and (suspected) exposure to COVID-19; Z79.899 Other long term (current) drug therapy
CPT/HCPCS: J1630; J2060

== ENCOUNTER 2021-03-16 14:38 | Emergency (ER) | payer MEDICAID ==
[~2021-03-16] VITALS: Ht 152.4 cm; Wt 90.9 kg
[2021-03-16 16:44] LABS: BASO % 0.6 % (0.0-2.0); EOS # 0.2 (0.0-0.7); EOS % 3.5 % (0-4.0); GRAN # 2.2 (1.4-6.5); GRAN % 45.7 % (42.2-75.2); HEMATOCRIT 45.2 % (42.0-52.0); HEMOGLOBIN 15.5 g/dl (13.5-18.0); LYMPH # 1.8 (1.2-3.4); LYMPH % 36.9 % (20.0-51.0); MEAN CELL VOLUME 95 fl (80.0-100.0); MEAN CORPUSCULAR HEMOGLOBIN 33 pg (27.0-31.0); MEAN CORPUSCULAR HGB CONC 34 g/dl (33.0-37.0); MEAN PLATELET VOLUME 8.8 fl (7.4-10.4); MONO # 0.6 (0.1-0.6); MONO % 13.1 % (1.7-9.3); PLATELET COUNT 269 K/mm3 (130-400); RED BLOOD COUNT 4.76 M/mm3 (4.20-5.60); REDCELL DISTRIBUTION WIDTH-CV 11.9 % (11.5-14.5)
[2021-03-16 16:49] LABS: ACETAMINOPHEN < 10 ug/mL (10-30); ALANINE AMINOTRANSFERASE 17 U/L (4-49); ALCOHOL(ethanol),MEDICAL < 10 mg/dL; ALKALINE PHOSPHATASE 60 U/L (50-136); ANION GAP 7 mmol/L (7-16); AST,SGOT 25 U/L (15-37); BILIRUBIN,TOTAL 0.4 mg/dL (0.0-1.0); BLOOD UREA NITROGEN 14 mg/dL (9-20); CARBON DIOXIDE 26 mmol/L (22-30); CHLORIDE 103 mmol/L (98-107); CREATININE, serum 1.02 (0.66-1.25); GLUCOSE 71 mg/dL (74-106); POTASSIUM 4.3 mmol/L (3.4-5.0); SALICYLATE < 1.0 mg/dL; SODIUM 135 mmol/L (137-145); TOTAL PROTEIN 7.2 gm/dL (6.4-8.2)
[2021-03-17 08:37] LABS: COLLECTION METHOD CLEAN CATCH
[2021-03-17 08:43] LABS: PH 6 (5-8); SQUAMOUS EPITHELIAL None Seen /hpf; URINE APPEARANCE Clear; URINE BACTERIA None Seen /hpf; URINE BILIRUBIN Negative (NEGATIVE); URINE BLOOD Negative (NEGATIVE); URINE COLOR Yellow; URINE GLUCOSE Negative (NEGATIVE); URINE KETONE Negative (NEGATIVE); URINE LEUKOCYTE ESTERASE Negative (NEGATIVE); URINE NITRATE Negative (NEGATIVE); URINE PROTEIN(semi-quant) Negative (NEGATIVE); URINE RBC 0-2 /hpf; URINE UROBILINOGEN Negative (NEGATIVE)
[2021-03-17 08:54] LABS: TRICYCLIC ANTIDEPRESS URINE NEGATIVE
[2021-03-17 11:00] VITALS: BP 123/85; TEMP 97.6
[2021-03-17 16:52] VITALS: PULSE 87
== END 2021-03-17 16:52 ==
LOC: COL.ER 14:38 → COL.LAB 14:38 → EDSTATUS 14:44 → COL.ER 03-17 16:52
PROVIDERS: Physician Assistant
DX: F20.9 Schizophrenia, unspecified (principal); Z20.822 Contact with and (suspected) exposure to COVID-19
CPT/HCPCS: J1200; J1630; J2060

== ENCOUNTER 2021-09-09 11:37 | Emergency (ER) | payer OTHER ==
[~2021-09-09] VITALS: Ht 180.3 cm; Wt 84.1 kg
[2021-09-09 11:44] VITALS: BP 124/82; TEMP 98
[2021-09-09 12:36] VITALS: PULSE 84
== END 2021-09-09 12:35 ==
LOC: COL.ER 11:37
DX: S01.111A Laceration without foreign body of right eyelid and periocular area, initial encounter (principal); F17.210 Nicotine dependence, cigarettes, uncomplicated; Z23 Encounter for immunization; W01.198A Fall on same level from slipping, tripping and stumbling with subsequent striking against other object, initial encounter; Y92.143 Cell of prison as the place of occurrence of the external cause